=== PATIENT | female | born 1985 | race Two or more races ===

== ENCOUNTER → 2017-11-01 | Emergency (ER) | payer OTHER ==
[~2017-11-01] VITALS: Ht 157.5 cm; Wt 59.9 kg
[~2017-11-01] MED LIST: LEVSIN/SL0.125 MG PO; PEPCID AC20 MG PO
== END | disposition home or self-care (01) ==
LOC: ER 19:15
DX: K29.70 Gastritis, unspecified, without bleeding (principal); R10.11 Right upper quadrant pain

== ENCOUNTER 2020-08-12 07:06 | Day surgery (SDC) | payer OTHER ==
[~2020-08-12 07:06] MED LIST changes: +ZYRTEC10 M3 PO
== END 2020-08-13 00:15 | disposition home or self-care (01) ==
LOC: CIR.AMB 07:06
PROVIDERS: ATTEND Surgery
DX: D24.1 Benign neoplasm of right breast (principal); Z20.828 Contact with and (suspected) exposure to other viral communicable diseases